=== PATIENT | male | born 1930 | race Caucasian/White ===

== ENCOUNTER 2018-12-03 14:24 | Emergency (ER) | payer MEDICARE, OTHER ==
--- NOTE | 2018-12-03 14:31 | EDM.PDOC ---
ED HPI GENERAL MEDICAL PROBLEM - General Stated Complaint: SENT BY [facility]/ HEAD BLEED Time Seen by Provider: 12/03/18 14:26 Source of Information: Reports: Patient, Provider (Dr. Cannon), RN Notes Reviewed History Limitations: Reports: No Limitations - History of Present Illness INITIAL COMMENTS - FREE TEXT/NARRATIVE: Case discussed with Dr. Cannon over the phone at 14:16, prior to the patient' s arrival. He stated that he saw the patient about one week ago for complaints of a headache, nausea, vomiting, malaise, and some confusion. The patient's neurologic exam at that time was normal. The patient was given IV fluid and discharged home. The patient then returned today, still complaining of confusion , although his headache had resolved. On neurologic exam, the patient may have a left visual field deficit. A CT scan of the head found what appears to be an intraparenchymal hemorrhage in the posterior right temporal lobe/parietal lobe, with surrounding edema, although the Radiologist's report is still pending. The patient takes a baby aspirin twice a day, along with Lipitor and Imdur, but no other anticoagulants. CT of the head without contrast is read by the [facility]iologist as "There is a mass in the right parietal lobe measuring 4 x 2.2 cm with surrounding edema ( series 3, image 14). This has high density posteriorly. Top differential considerations would be between and intraparenchymal subacute hematoma or mass with superimposed hemorrhage. Follow-up MRI is recommended. There is partial effacement of the right lateral ventricle posteriorly, but no significant mass effect or midline shift." The patient confirms that he still has some confusion, but minimal, if any, nausea, and no headache. - Related Data Allergies Allergy/AdvReac Type Severity Reaction Status Date / Time No Known Allergies Allergy Verified 12/03/18 14:30 Home Meds: Home Meds Aspirin 81 mg PO BID 01/15/16 [History] Isosorbide Mononitrate [Imdur] 60 mg PO DAILY 01/15/16 [History] Metoprolol Succinate 50 mg PO BID 01/15/16 [History] Vit A/Vit C/Vit E/Zinc/Copper [Preservision] 2 tab PO DAILY 01/15/16 [History] atorvaSTATin [Lipitor] 40 mg PO DAILY 02/26/16 [History] Tamsulosin [Tamsulosin 24 Hr] 0.4 mg PO DAILY 12/03/18 [History] Past Medical History HEENT History: Reports: Hard of Hearing Cardiovascular History: Reports: Afib (paroxysmal), CAD (Quadruple coronary artery bypass surgery with utilization of both radial arteries for surgery in 2003.), High Cholesterol, Hypertension Musculoskeletal History: Reports: Fracture (right clavicle), Osteoarthritis, Other (See Below) (DDD) Oncologic (Cancer) History: Reports: Basal Cell Carcinoma (right ear) - Infectious Disease History Infectious Disease History: Reports: Chicken Pox, Mumps - Past Surgical History HEENT Surgical History: Reports: Cataract Surgery (bilteral) Cardiovascular Surgical History: Reports: Coronary Artery Bypass (x 4 vessel, 2003) Neurological Surgical History: Reports: Laminectomy (lumbar) Musculoskeletal Surgical History: Reports: Shoulder Surgery (right, open) Oncologic Surgical History: Reports: Other (See Below) (Excision BCC from right ear) Social & Family History - Family History Family Medical History: Noncontributory - Tobacco Use Smoking Status *Q: Former Smoker Years of Tobacco use: 32 Packs/Tins Daily: 1 Month/Year Tobacco Last Used: Quit 1979 - Alcohol Use Alcohol Use History: Yes Alcohol Use Frequency: Socially - Recreational Drug Use Recreational Drug Use: No - Living Situation & Occupation Living situation: Reports: , with Spouse, with Family (1 daughter) Occupation: Retired ED ROS GENERAL - Review of Systems Review Of Systems: ROS reveals no pertinent complaints other than HPI. ED EXAM, NEURO - Physical Exam Exam: See Below Exam Limited By: No Limitations General Appearance: Alert, WD/WN, No Apparent Distress Eye Exam: Bilateral Eye: EOMI, Normal Inspection (S/P cataract surgery bilateraly), PERRL Ears: Normal External Exam, Normal Canal, Normal TMs, Hearing Loss Nose: Normal Inspection, Normal Mucosa, No Blood Throat/Mouth: Normal Inspection, Normal Lips, Normal Teeth, Normal Voice, No Airway Compromise Head Exam: Atraumatic, Normocephalic Neck: Normal Inspection, Full Range of Motion Respiratory/Chest: No Respiratory Distress, Lungs Clear, Normal Breath Sounds, No Accessory Muscle Use Cardiovascular: Normal Peripheral Pulses, Regular Rate, Rhythm, No Edema, No Gallop, No JVD, No Murmur, No Rub GI/Abdominal: Normal Bowel Sounds, Soft, Non-Tender, No Organomegaly, No Distention, No Abnormal Bruit, No Mass (Male) Exam: Deferred Rectal (Males) Exam: Deferred Neurological: Alert, Normal Dorsiflexion, CN II-XII Intact, Normal Plantar Flexion, No Motor/Sensory Deficits, Oriented x 3, Other (No visual field deficits on direct visual field testing) Back Exam: Normal Inspection, Full Range of Motion, NT Extremities: Normal Inspection, Normal Range of Motion, No Pedal Edema, Normal Capillary Refill Psychiatric: Normal Affect Skin Exam: Warm, Dry, Intact, Normal Color, No Rash Course - Vital Signs Last Recorded V/S: Last Vital Signs Temp 36.3 C 12/03/18 14:30 Pulse 71 12/03/18 14:30 Resp 15 12/03/18 14:30 BP 141/46 H 12/03/18 14:30 Pulse Ox 99 12/03/18 14:30 - Re-Assessments/Exams Free Text/Narrative Re-Assessment/Exam: 12/03/18 15:[address] Monique, Neurologist at [facility], at 15:03. He was able to view the CT images that I pushed earlier. He recommended that we keep the patient's BP below 140/90 and transfer him to their emergency department for a CT angiogram of the head and neck, and, possibly, a MRI with gadolinium contrast. 12/03/18 15:23 Ground ambulance is not available, therefore we will have to fly the patient to [place]. Departure - Departure Time of Disposition: 15:15 Disposition: DC/Tfer to Acute Hospital 02 Condition: Fair Clinical Impression: Intraparenchymal hemorrhage of brain - Discharge Information *PRESCRIPTION DRUG MONITORING PROGRAM REVIEWED*: Not Applicable *COPY OF PRESCRIPTION DRUG MONITORING REPORT IN PATIENT JOE: Not Applicable Referrals: Baljinder Cannon MD [Primary Care Provider] -
[2018-12-03 15:55] VITALS: BP 141/83
== END 2018-12-03 16:10 ==
LOC: JD.ED 14:24
DX: I61.9 Nontraumatic intracerebral hemorrhage, unspecified (principal); I48.91 Unspecified atrial fibrillation; I25.10 Atherosclerotic heart disease of native coronary artery without angina pectoris; I10 Essential (primary) hypertension; E78.00 Pure hypercholesterolemia, unspecified; Z79.82 Long term (current) use of aspirin; Z79.899 Other long term (current) drug therapy; Z87.891 Personal history of nicotine dependence; Z98.890 Other specified postprocedural states; Z90.12 Acquired absence of left breast and nipple; Z98.61 Coronary angioplasty status
CPT/HCPCS: 99285

== ENCOUNTER 2020-02-10 10:55 | Emergency (ER) | payer MEDICARE, OTHER ==
[2020-02-10 11:07] VITALS: BP 114/50; PULSE 59
[2020-02-10] MEDS ORDERED: Sodium Chloride 0.9% 10 ML Syringe FLUSH PRN (11:28)
[2020-02-10] MEDS ORDERED: Sodium Chloride 0.9% 1,000 ML IV ONE (11:29)
--- NOTE | 2020-02-10 11:34 | EDM.PDOC ---
ED HPI GENERAL MEDICAL PROBLEM - General Chief Complaint: Fever Stated Complaint: FEVER AND HEADACHE AND WEAKNESS Time Seen by Provider: 02/10/20 11:15 Source of Information: Reports: Patient, RN Notes Reviewed History Limitations: Reports: No Limitations - History of Present Illness INITIAL COMMENTS - FREE TEXT/NARRATIVE: Patient is an 89-year-old male who presents to the ED for the evaluation of his fever/headache/generalized weakness. The patient notes that he has had a fever at home as high as 102.3 F. At time of triage his temperature is 97 F. The patient did take Tylenol at around 8 AM this morning. The patient notes that the fever developed Monday, and he has been using Tylenol on and off for this. He does note generalized body aches, and chills. He had a slight sore throat to start the illness, but this does seem to have gone away. He is not complaining of any cough, shortness of breath, chest pain, nausea/vomiting/ diarrhea. Patient also denies any sort of dysuria, urinary frequency or urgency. The present in the room states that they have been in the house and limiting contact for the past 10 days. They do not recount being around anyone that has been sick nor has he had any travel. The patient was questioning whether or not he should be tested for coronavirus at this time. His primary care provider is Dr. Cannon. The patient's blood pressure is mildly low at time of triage, at 114/50. Recheck of this while in the room, elicited a reading of 90/49. 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 - Related Data Allergies Allergy/AdvReac Type Severity Reaction Status Date / Time No Known Allergies Allergy Verified 02/10/20 11:07 Home Meds: Home Meds Aspirin 81 mg PO BID 01/15/16 [History] Isosorbide Mononitrate [Imdur] 60 mg PO DAILY 01/15/16 [History] Metoprolol Succinate 50 mg PO BID 01/15/16 [History] Vit A/Vit C/Vit E/Zinc/Copper [Preservision] 2 tab PO DAILY 01/15/16 [History] atorvaSTATin [Lipitor] 40 mg PO DAILY 01/15/16 [History] Tamsulosin [Tamsulosin 24 Hr] 0.4 mg PO DAILY 12/03/18 [History] Cyanocobalamin (Vitamin B12) [Vitamin B12] 1,000 mcg PO BEDTIME 02/10/20 [ History] Folic Acid 400 mg PO BEDTIME 02/10/20 [History] Losartan [Cozaar] 25 mg PO DAILY 02/10/20 [History] Metoprolol Tartrate 30 mg PO DAILY 02/10/20 [History] levETIRAcetam [Levetiracetam] 500 mg PO BID 02/10/20 [History] Past Medical History HEENT History: Reports: Hard of Hearing Cardiovascular History: Reports: Afib, CAD, High Cholesterol, Hypertension Musculoskeletal History: Reports: Fracture, Osteoarthritis Other Musculoskeletal History: fx collar bone Oncologic (Cancer) History: Reports: Basal Cell Carcinoma Dermatologic History: Reports: Other (See Below) Other Dermatologic History: "water blisters" - Infectious Disease History Infectious Disease History: Reports: Chicken Pox, Mumps - Past Surgical History HEENT Surgical History: Reports: Cataract Surgery Cardiovascular Surgical History: Reports: Coronary Artery Bypass GI Surgical History: Reports: Appendectomy Neurological Surgical History: Reports: Laminectomy Musculoskeletal Surgical History: Reports: Shoulder Surgery Social & Family History - Family History Family Medical History: Noncontributory - Tobacco Use Smoking Status *Q: Never Smoker - Caffeine Use Caffeine Use: Reports: Coffee - Recreational Drug Use Recreational Drug Use: No - Living Situation & Occupation Living situation: Reports: , with Spouse, with Family (1 daughter) Occupation: Retired ED ROS ENT - Review of Systems Review Of Systems: See Below Constitutional: Reports: Fever, Chills, Malaise (generalized), Weakness ( generalized) HEENT: Denies: Rhinitis, Throat Pain Respiratory: Denies: Shortness of Breath, Cough, Sputum Cardiovascular: Denies: Chest Pain GI/Abdominal: Denies: Abdominal Pain, Constipation, Diarrhea, Nausea, Vomiting : Denies: Dysuria, Frequency, Urgency ED EXAM, ENT - Physical Exam Exam: See Below Exam Limited By: No Limitations General Appearance: Alert, WD/WN, No Apparent Distress Eye Exam: Bilateral Eye: EOMI, Normal Inspection, PERRL Ears: Normal External Exam Nose: Normal Inspection, Normal Mucousa, No Blood Mouth/Throat: Normal Inspection, Normal Gums, Normal Lips, Normal Oropharynx, Normal Teeth Head: Atraumatic, Normocephalic Neck: Normal Inspection Respiratory/Chest: No Respiratory Distress, Lungs Clear, Normal Breath Sounds, No Accessory Muscle Use, Chest Non-Tender Cardiovascular: Normal Peripheral Pulses, Regular Rate, Rhythm, No Murmur GI/Abdominal: Normal Bowel Sounds, Soft, Non-Tender, No Distention, No Mass Extremities: Normal Inspection, Normal Capillary Refill Neurological: Alert, Oriented, Normal Cognition, No Motor/Sensory Deficits Psychiatric: Normal Affect, Normal Mood Skin: Warm, Dry, Intact, Normal Color, No Rash Course - Vital Signs Last Recorded V/S: Last Vital Signs Temp 97 F 02/10/20 11:03 Pulse 59 L 02/10/20 11:03 Resp 16 02/10/20 11:03 BP 114/50 L 02/10/20 11:03 Pulse Ox 94 L 02/10/20 11:03 - Orders/Labs/Meds Orders: Active Orders 24 hr Category Date Time Status Peripheral IV Care [RC] . DIRECTED Care 02/10/20 11:29 Ordered Sodium Chloride 0.9% [Saline Flush] Med 02/10/20 11:28 Ordered 10 ml FLUSH ASDIRECTED PRN Isolation [COMM] Routine Oth 02/10/20 11:29 Ordered Peripheral IV Insertion Adult [OM.PC] Routine Oth 02/10/20 11:28 Ordered Medication Orders Sodium Chloride (Saline Flush) 10 ml FLUSH ASDIRECTED PRN PRN Reason: Keep Vein Open Last Admin: 02/10/20 11:48 Dose: 10 ml Labs: Laboratory Tests 02/10/20 02/10/20 02/10/20 Range/Units 11:45 11:45 13:53 WBC 9.09 H (4.23-9.07) K/mm3 RBC 3.15 L (4.63-6.08) M/mm3 Hgb 11.6 L (13.7-17.5) gm/dl Hct 36.1 L (40.1-51.0) % MCV 114.6 H D (79.0-92.2) fl MCH 36.8 H (25.7-32.2) pg MCHC 32.1 L (32.2-35.5) g/dl RDW Std Deviation 54.7 H (35.1-43.9) fL Plt Count 140 L (163-337) K/mm3 MPV 9.9 (9.4-12.3) fl Neutrophils % (Manual) 71 H (40-60) % Band Neutrophils % 0 (0-10) % Lymphocytes % (Manual) 25 (20-40) % Atypical Lymphs % 0 % Monocytes % (Manual) 3 (2-10) % Eosinophils % (Manual) 1 (0.8-7.0) % Basophils % (Manual) 0 L (0.2-1.2) Platelet Estimate Adequate Plt Morphology Comment Normal Macrocytosis 2+ moderate RBC Morph Comment Not Reportable Sodium 141 (136-145) mEq/L Potassium 3.7 (3.5-5.1) mEq/L Chloride 107 (98-107) mEq/L Carbon Dioxide 27 (21-32) mEq/L Anion Gap 10.7 (5-15) BUN 23 H (7-18) mg/dL Creatinine 1.3 (0.7-1.3) mg/dL Est Cr Clr Drug Dosing 40.56 mL/min Estimated GFR (MDRD) 52 (>60) mL/min BUN/Creatinine Ratio 17.7 (14-18) Glucose 127 H (83-115) mg/dL Calcium 8.3 L (8.5-10.1) mg/dL Total Bilirubin 0.9 (0.2-1.0) mg/dL AST 22 (15-37) U/L ALT 25 (16-63) U/L Alkaline Phosphatase 84 (46-116) U/L Total Protein 6.6 (6.4-8.2) g/dl Albumin 2.9 L (3.4-5.0) g/dl Globulin 3.7 gm/dL Albumin/Globulin Ratio 0.8 L (1-2) Urine Color Yellow (Yellow) Urine Appearance Clear (Clear) Urine pH 6.0 (5.0-8.0) Ur Specific [place] 1.025 (1.005-1.030) Urine Protein Trace H (Negative) Urine Glucose (UA) Negative (Negative) Urine Ketones Negative (Negative) Urine Occult Blood Trace-intact H (Negative) Urine Nitrite Negative (Negative) Urine Bilirubin Negative (Negative) Urine Urobilinogen 1.0 (0.2-1.0) Ur Leukocyte Esterase Negative (Negative) Urine RBC 5-10 H (0-5) /hpf Urine WBC 0-5 (0-5) /hpf Ur Squamous Epith Cells 0-5 (0-5) /hpf Urine Bacteria Few (FEW) /hpf Urine Mucus Not seen (FEW) /hpf Meds: Medications Generic Name Dose Route Start Last Admin Trade Name Freq PRN Reason Stop Dose Admin Sodium Chloride 10 ml 02/10/20 11:28 02/10/20 11:48 Saline Flush FLUSH 10 ml ASDIRECTED PRN Administration Keep Vein Open Discontinued Medications Generic Name Dose Route Start Last Admin Trade Name Freq PRN Reason Stop Dose Admin Sodium Chloride 1,000 mls @ 500 mls/hr 02/10/20 11:29 02/10/20 11:47 Normal Saline IV 02/10/20 13:28 500 mls/hr ONETIME ONE Administration - Re-Assessments/Exams Free Text/Narrative Re-Assessment/Exam: 02/10/20 11:38 The patient presents to the ED for the evaluation of a fever/headache/weakness. I will test the patient for influenza, check a chest x-ray, obtain a CBC, CMP , and a urinalysis, will give the patient some fluids to start as his blood pressure is mildly low at today's visit. Regarding the coronavirus testing. I will suggest that if the patient's laboratory evaluation and all other tests come back within normal limits, that the patient still try to self quarantine at home, as I believe he is low risk at this time for having contracted the disease. Although his age is a concerning factor, there are no other lower respiratory symptoms elicited at today's exam. 02/10/20 14:34 Patient's laboratory evaluation is unremarkable. Influenza screen is negative. Patient's blood pressure did improve after the fluids, he states he is feeling symptomatically better. We will be discharging the patient home with general recommendations for follow-up in the next few days if not getting much better. Departure - Departure Time of Disposition: 14:35 Disposition: Home, Self-Care 01 Condition: Fair Clinical Impression: Fever Qualifiers: Fever type: unspecified Qualified Code(s): R50.9 - Fever, unspecified - Discharge Information *PRESCRIPTION DRUG MONITORING PROGRAM REVIEWED*: No *COPY OF PRESCRIPTION DRUG MONITORING REPORT IN PATIENT JOE: No Instructions: Fever, Adult, [id number] Referrals: Baljinder Cannon MD [Primary Care Provider] - Forms: ED Department Discharge Additional Instructions: You have been evaluated in the ED today for your cold like symptoms and fever. This is likely a viral illness in etiology. Your influenza screen was negative at today's visit. Your other laboratory evaluation was unremarkable as well. Chest x-ray shows no sign of a pneumonia at this time. Please increase your fluid intake. Get plenty of rest as well. You should feel better in a few days. As with any illness, please try to limit your exposure to others to help mitigate the spread of germs. Please also remember to wash your hands after you cough/sneeze. Please try to limit touching your face, and then touching other surfaces. You may take 500mg Tylenol (acetaminophen) or 600mg Advil/Motrin (ibuprofen) every 6 hours as needed for further pain/fever relief. Do not exceed 4000 mg Tylenol or 3200 mg ibuprofen in a 24-hour time span. If you have high blood pressure, medications like Coricidin would be adequate to use. Regarding testing for COVID-19, testing supplies are very limited, and the tests must be rationed in a way that only the patients that are HIGHLY suspected to have the virus are the ones being tested at this time. We ask that you self-quarantine for at least 7 days from the beginning of symptoms. You have been given a work note to reflect this. If your symptoms are not better in 48 to 72 hours time, recommend you seek care for re-evaluation. Please return to the ED if your symptoms change or worsen. Sepsis Event Note - Evaluation Sepsis Screening Result: No Definite Risk - Focused Exam Vital Signs: Vital Signs Temp Pulse Resp BP Pulse Ox 02/10/20 11:03 97 F 59 L 16 114/50 L 94 L Date Exam was Performed: 02/10/20 Time Exam was Performed: 14:34 - My Orders Last 24 Hours: My Active Orders 02/10/20 11:28 Sodium Chloride 0.9% [Saline Flush] 10 ml FLUSH ASDIRECTED PRN Peripheral IV Insertion Adult [OM.PC] Routine 02/10/20 11:29 Peripheral IV Care [RC] . DIRECTED Isolation [COMM] Routine - Assessment/Plan Last 24 Hours: My Active Orders 02/10/20 11:28 Sodium Chloride 0.9% [Saline Flush] 10 ml FLUSH ASDIRECTED PRN Peripheral IV Insertion Adult [OM.PC] Routine 02/10/20 11:29 Peripheral IV Care [RC] . DIRECTED Isolation [COMM] Routine
--- NOTE | 2020-02-10 12:02 | CR ---
Chest: 2 views of the chest were obtained. Comparison: No prior chest imaging is available. Findings: Prior chest x-ray of 03/27/16. Heart size and mediastinum are within normal limits. Lungs are clear with no acute parenchymal change. Degenerative endplate spurring is noted within the spine. Prior sternotomy is noted. Impression: 1. Findings as noted above. 2. Nothing acute is appreciated. Diagnostic code #2 This report was dictated in MDT
== END 2020-02-10 14:46 | disposition home or self-care (01) ==
LOC: JD.ED 10:55
DX: R50.9 Fever, unspecified (principal); I10 Essential (primary) hypertension; I25.10 Atherosclerotic heart disease of native coronary artery without angina pectoris; I48.91 Unspecified atrial fibrillation; E78.00 Pure hypercholesterolemia, unspecified; M19.90 Unspecified osteoarthritis, unspecified site; Z79.82 Long term (current) use of aspirin; Z79.899 Other long term (current) drug therapy
CPT/HCPCS: 36415; 71046; 80053; 81001; 85007; 85027; 87804; 96360; 96361; 99284; J7030; 99283

== ENCOUNTER 2021-06-25 16:51 | Emergency (ER) | payer MEDICARE, OTHER ==
[2021-06-25 17:31] VITALS: BP 144/72; PULSE 60
[2021-06-25] MEDS ORDERED: LORazepam 2 MG/ML SDV IVPUSH ONE (17:41)
[2021-06-25] MEDS ORDERED: Glucagon,Human Recombinant 1 MG Vial IVPUSH ONE (17:41)
--- NOTE | 2021-06-25 18:48 | EDM.PDOC ---
ED HPI GENERAL MEDICAL PROBLEM - General Chief Complaint: ENT Problem Stated Complaint: SOMETHING STUCK IN THROAT Time Seen by Provider: 06/25/21 17:29 Source of Information: Reports: Patient, Family, RN Notes Reviewed History Limitations: Reports: No Limitations - History of Present Illness INITIAL COMMENTS - FREE TEXT/NARRATIVE: Patient is an 89-year-old male presenting to the emergency department with complaints of foreign body stuck in his esophagus. Reports around 1330 he was eating chicken and pasta and feels that he did not completely swallow the food. He tried to go in the bathroom and force himself to vomit, however was unsuccessful. Denies shortness of breath. He has been able to get small amounts of liquids down but states that it feels like he is "swallowing backwards ". Denies any significant pain. Denies shortness of breath. - Related Data Allergies Allergy/AdvReac Type Severity Reaction Status Date / Time No Known Allergies Allergy Verified 06/25/21 17:32 Home Meds: Home Meds Aspirin 81 mg PO DAILY 01/15/16 [History] Isosorbide Mononitrate [Imdur] 60 mg PO BEDTIME 01/15/16 [History] Metoprolol Succinate 50 mg PO BEDTIME 01/15/16 [History] Vit A/Vit C/Vit E/Zinc/Copper [Preservision] 1 tab PO BID 01/15/16 [History] atorvaSTATin [Lipitor] 40 mg PO DAILY 01/15/16 [History] Tamsulosin [Tamsulosin 24 Hr] 0.4 mg PO DAILY 12/03/18 [History] Cyanocobalamin (Vitamin B12) [Vitamin B12] 1,000 mcg PO BEDTIME 02/10/20 [History] Folic Acid 400 mg PO BEDTIME 02/10/20 [History] Losartan [Cozaar] 25 mg PO DAILY 02/10/20 [History] Metoprolol Tartrate 30 mg PO DAILY 02/10/20 [History] levETIRAcetam [Levetiracetam] 500 mg PO BID 02/10/20 [History] Past Medical History HEENT History: Reports: Hard of Hearing Cardiovascular History: Reports: Afib, CAD, High Cholesterol, Hypertension Respiratory History: Reports: None Gastrointestinal History: Reports: None Genitourinary History: Reports: None Musculoskeletal History: Reports: Fracture, Osteoarthritis Other Musculoskeletal History: fx collar bone Psychiatric History: Reports: None Endocrine/Metabolic History: Reports: None Hematologic History: Reports: None Immunologic History: Reports: None Oncologic (Cancer) History: Reports: Basal Cell Carcinoma Dermatologic History: Reports: Other (See Below) Other Dermatologic History: "water blisters" - Infectious Disease History Infectious Disease History: Reports: Chicken Pox, Mumps - Past Surgical History HEENT Surgical History: Reports: Cataract Surgery Cardiovascular Surgical History: Reports: Coronary Artery Bypass Other Cardiovascular Surgeries/Procedures: radial veins removed in bilateral arms, quadrupile bypass GI Surgical History: Reports: Appendectomy Neurological Surgical History: Reports: Laminectomy Musculoskeletal Surgical History: Reports: Shoulder Surgery Oncologic Surgical History: Reports: Other (See Below) Dermatological Surgical History: Reports: None Social & Family History - Family History Family Medical History: No Pertinent Family History - Tobacco Use Tobacco Use Status *Q: Former Tobacco User Used Tobacco, but Quit: Yes Month/Year Tobacco Last Used: 05/1980 - Caffeine Use Caffeine Use: Reports: Coffee - Recreational Drug Use Recreational Drug Use: No - Living Situation & Occupation Living situation: Reports: , with Spouse, with Family (1 daughter) Occupation: Retired ED ROS ENT - Review of Systems Review Of Systems: Comprehensive ROS is negative, except as noted in HPI. ED EXAM, ENT - Physical Exam Exam: See Below Exam Limited By: No Limitations General Appearance: Alert, WD/WN, No Apparent Distress Mouth/Throat: Normal Inspection, Normal Gums, Normal Lips, Normal Oropharynx, Normal Teeth Respiratory/Chest: No Respiratory Distress, Lungs Clear, Normal Breath Sounds, No Accessory Muscle Use, Chest Non-Tender Cardiovascular: Normal Peripheral Pulses, Regular Rate, Rhythm, No Edema, No Gallop, No JVD, No Murmur, No Rub GI/Abdominal: Normal Bowel Sounds, Soft, Non-Tender, No Organomegaly, No Distention, No Abnormal Bruit, No Mass Neurological: Alert, Oriented, CN II-XII Intact, Normal Cognition, Normal Gait, Normal Reflexes, No Motor/Sensory Deficits Psychiatric: Normal Affect, Normal Mood Skin: Warm, Dry, Intact, Normal Color, No Rash Course - Vital Signs Last Recorded V/S: Last Vital Signs Temp 98.1 F 06/25/21 17:27 Pulse 60 06/25/21 17:27 Resp 17 06/25/21 17:27 BP 144/72 H 06/25/21 17:27 Pulse Ox 98 06/25/21 17:27 - Orders/Labs/Meds Meds: Medications Discontinued Medications Generic Name Dose Route Start Last Admin Trade Name Pauline DELCID Reason Stop Dose Admin Glucagon 1 mg 06/25/21 17:41 06/25/21 19:17 Glucagon,Human Recombinant 1 Mg Vial IVPUSH 06/25/21 17:42 Not Given ONETIME ONE Lorazepam 0.5 mg 06/25/21 17:41 06/25/21 19:17 Lorazepam 2 Mg/Ml Sdv IVPUSH 06/25/21 17:42 Not Given ONETIME ONE - Re-Assessments/Exams Free Text/Narrative Re-Assessment/Exam: Patient is an 89-year-old male presenting to the emergency department with complaints of food bolus stuck in his esophagus. Reports symptoms began around 130 this afternoon after eating chicken and pasta. He is able to swallow saliva, however states it feels like he is "swallowing backwards ". At the time of examination. I did provide him with 7 up which after significant effort he was able to swallow. I suspect there is a partial food bolus stuck in his esophagus. I have ordered Ativan 0.5 mg IV and glucagon 1 mg IV to be given. 06/25/21 18:52 Nursing staff reports that after IV insertion, but before medications were given that patient states his symptoms have resolved. He has been able to drink liquids without difficulty. He will be discharged home. Discharge instructions as documented. Departure - Departure Time of Disposition: 18:53 Disposition: Home, Self-Care 01 Condition: Good Clinical Impression: FB esophagus Qualifiers: Encounter type: initial encounter Qualified Code(s): T18.108A - Unspecified foreign body in esophagus causing other injury, initial encounter - Discharge Information *PRESCRIPTION DRUG MONITORING PROGRAM REVIEWED*: No *COPY OF PRESCRIPTION DRUG MONITORING REPORT IN PATIENT JOE: No Instructions: Swallowed Foreign Body, Adult, [id number] Referrals: Baljinder Cannon MD [Primary Care Provider] - Forms: ED Department Discharge Additional Instructions: You were seen in the emergency department today for evaluation of having food bolus stuck in your esophagus. You were able to clear the obstruction without medications being given. You may resume normal diet. Ensure that you are chewing your food well and cutting it into small bites. If you should experience any difficulties, please do not hesitate to return to the emergency department for reevaluation. Sepsis Event Note (ED) - Evaluation Sepsis Screening Result: No Definite Risk
== END 2021-06-25 19:18 | disposition home or self-care (01) ==
LOC: JD.ED 16:51
DX: T18.128A Food in esophagus causing other injury, initial encounter (principal); I48.91 Unspecified atrial fibrillation; I25.10 Atherosclerotic heart disease of native coronary artery without angina pectoris; E78.00 Pure hypercholesterolemia, unspecified; I10 Essential (primary) hypertension; Z79.899 Other long term (current) drug therapy; Z87.891 Personal history of nicotine dependence
CPT/HCPCS: 99283; 99284